=== PATIENT | female | born 1955 | race Caucasian/White ===

== ENCOUNTER 2017-01-07 12:09 | Outpatient (CLI) | payer BC ==
--- NOTE | 2017-01-07 14:50 | Diagnostic Imaging Report ---
Indication: COUGH Technique: PA and lateral views of the chest. Findings: Comparison: None Aortic arch mildly calcified. Small osteophytes at the margins of several thoracic intervertebral disc spaces. The remaining bones and extra pulmonary soft tissues, remainder of the cardiomediastinal silhouette, pulmonary vasculature and parenchyma, and pleural surfaces are unremarkable. IMPRESSION: No evidence of acute cardiopulmonary disease Aortosclerosis, mild Degenerative spondylosis, mild
== END 2017-01-07 14:09 | disposition home or self-care (01) ==
LOC: RAD 12:09
DX: R05 Cough (principal); I70.0 Atherosclerosis of aorta; M47.9 Spondylosis, unspecified
CPT/HCPCS: 71020